=== PATIENT | male | born 1975 | race Caucasian/White ===

== ENCOUNTER 2018-12-31 12:10 | Inpatient (IN) | payer OTHER ==
[~2018-12-31] VITALS: Ht 195.6 cm; Wt 105.6 kg
[2018-12-31 12:43] LABS: BASOPHILS ABSOLUTE AUTO 0.01 K/mm3 (0.00-0.23); BASOPHILS PERCENT AUTO 0 % (0-2); EOSINOPHILS ABSOLUTE AUTO 0.01 K/mm3 (0.00-0.68); EOSINOPHILS PERCENT AUTO 0 % (0-6); IMMATURE GRAN ABSOLUTE AUTO 0.03 K/mm3 (0.00-0.10); IMMATURE GRAN PERCENT AUTO 0 % (0-1); LYMPHOCYTES ABSOLUTE AUTO 0.59 K/mm3 (0.84-5.20); LYMPHOCYTES PERCENT AUTO 8 % (21-46); MONOCYTES ABSOLUTE AUTO 0.39 K/mm3 (0.16-1.47); MONOCYTES PERCENT AUTO 6 % (4-13); Mean Corpuscular HGB 22.4 pg (26.0-34.0); Mean Corpuscular HGB Conc 27.7 g/dL (31.5-36.5); Mean Corpuscular Volume 81 fL (80-100); Mean Platelet Volume 9.8 fL (9.1-12.4); NEUTROPHILS ABSOLUTE AUTO 5.96 K/mm3 (1.96-9.15); NEUTROPHILS PERCENT AUTO 85 % (41-73); Platelet Count 216 K/mm3 (150-400); RDW Coefficient Variation 21.2 % (11.7-14.2); RDW Standard Deviation 61.8 fL (35.1-46.3); Red Blood Cell Count 1.83 M/mm3 (4.30-5.90); White Blood Cell Count 6.99 K/mm3 (4.00-11.30)
[2018-12-31 12:45] LABS: Hematocrit 14.8 % (37.0-53.0); Hemoglobin 4.1 g/dL (13.5-17.5)
[2018-12-31 13:03] LABS: Alanine Aminotransfer (ALT/SGP 34 U/L (12-78); Albumin, Blood 2.8 g/dL (3.4-5.0); Albumin/Globulin Ratio 0.8 (0.8-1.8); Alk Phos 145 U/L (50-136); Anion Gap 19 mmol/L (6-16); Aspartate Aminotrans (AST/SGOT 109 U/L (12-37); Bilirubin, Total 4.5 mg/dL (0.1-1.0); Blood Urea Nitrogen 16 mg/dL (8-24); Bun/Creatinine Ratio 18.1 (12.0-20.0); CO2, Blood 17 mmol/L (21-32); Calcium, Blood 7.8 mg/dL (8.5-10.1); Chloride, Blood 103 mmol/L (98-108); Creatinine, Blood 0.88 mg/dL (0.60-1.20); Globulin, Blood 3.7 g/dL (2.2-4.0); Glomerular Filtration Rate >60 (60-); Glucose, Blood 132 mg/dL (70-99); Potassium, Blood 3.9 mmol/L (3.5-5.5); Sodium, Blood 139 mmol/L (136-145); Total Protein, Blood 6.5 g/dL (6.4-8.2)
[2018-12-31 14:48] LABS: International Normalized Ratio 1.67; Prothrombin Time Results 16.9 Sec (9.7-11.5)
[2018-12-31 15:07] LABS: Acetaminophen, Random <2.0 ug/mL (10.0-30.0); Bilirubin, Direct 3.1 mg/dL (0.0-0.3)
[2018-12-31] MEDS ORDERED: Prilosec Otc20 MG PO (16:32)
[2018-12-31] MEDS ORDERED: ACET325 PO (17:39)
--- NOTE | 2018-12-31 18:43 | NUR ---
PT ARRIVED TO PCU 11 VIA GURNEY FROM ED. REPORT FROM ED NURSE. PT WAS PULLED TO BED HE IS VERY PAINFUL AND WEAK. A/OX3, PLEASANT AND COOPERATIVE WITH CARE, FOLLOWS COMMANDS WELL, STATES HE PASSED OUT SEVERAL TIMES ON THE WAY HERE AND ALMOST FELL OUT OF THE CAR AND BRUISED HIMSELF UP, LUNGS ARE CLEAR T/O, RESP EVEN AND UNLABORED, NO COUGH NOTED, HRR, TELE IN PLACE RUNNING SR P PER MONITOR, SEE STRIP, NO EDEMA NOTED, PPP+1, CAP REFILL <3SEC, VS STABLE, AFEBRILE, IV SITES ARE CLEAR AND PATENT, BTX4, ABD FLAT SOFT NONTENDER, VOIDS WITHOUT DIFF, SKIN HAS SOME BRUISINGS TO RIGHT ARM AND LOW BACK, HORTENCIA COMBS ORIENTED TO ROOM LAYOUT AND CALL SYSTEM, CALL LIGHT IN REACH.
[2018-12-31 22:51] LABS: Hematocrit 19.7 % (37.0-53.0)
--- NOTE | 2019-01-01 01:37 | NUR ---
ASSUMED CARE OF PATIENT AT [facility] 1900 FROM HORACIO Miller RN. PATIENT ALERT AND ORIENTED X4; WEAK AND PATIENT REPORTS PAIN IN LOWER BACK, RIGHT SIDE FROM FALL BEFORE ARRIVAL TO HOSPITAL. PATIENT REPORTS NUMBNESS AND TINGLING IN LEFT INDEX FINGER FROM PREVIUOS INJURY. PATIENT DENIES DIZZINES AND NAUSEA AT START OF SHIFT; REPORTED NAUSEA AND UPSET STOMACH AFTER MIDNIGHT; MEDICATED PER EMAR. NPO EXCEPT SOME ICE CHIPS. REPORTED THIRD UNIT OF BLOOD INFUSING DURING SHIFT CHANGE. NO S/S OF REACTION NOTED. VSS. PATIENT AMBUALTES TO BEDSIDE COMMODE WITH 1-2 ASSIST TO [facility]; ATTENDS IN PLACE FOR INCONTINENT SMEARS; STOOL BLACK AND TARRY. URINE IS DARK; HGB 6.0 45 MINUTES AFTER 3RD RBC INFUSIONS; CALLED DR. DE LEON; NO NEW ORDERS RECIEVED; NEXT H/H AT 0500. CIWA 4-9; LIBRUIM AND ATIVAN GIVEN PER ORDER; MODERATE TREMOR NOTED; HEADACHE AT START OF SHIFT. NSR ON TELE; OXYGEN SATURATION ABOVE 90% ON ROOM AIR; SCDS IN PLACE. OCTREOTIDE, PROTONIX AND NS W/ KCL INFUSING PER ORDER; 3X PIV. PATIENT CURRENTLY SLEEPING IN BED; CALL LIGHT IN REACH; BED IN LOWEST POSISTION; BED ALARM ON; WILL CONTINUE TO MONIOR AND ASSESS UNTIL END OF BED.
[2019-01-01 04:28] LABS: Mean Corpuscular HGB 25.2 pg (26.0-34.0); Mean Corpuscular HGB Conc 30.7 g/dL (31.5-36.5); Mean Corpuscular Volume 82 fL (80-100); Mean Platelet Volume 9.9 fL (9.1-12.4); Platelet Count 112 K/mm3 (150-400); RDW Standard Deviation 56.3 fL (35.1-46.3); Red Blood Cell Count 2.14 M/mm3 (4.30-5.90)
[2019-01-01 04:35] LABS: Hematocrit 17.6 % (37.0-53.0); Hemoglobin 5.4 g/dL (13.5-17.5)
[2019-01-01 04:44] LABS: Anion Gap 8 mmol/L (6-16); Blood Urea Nitrogen 17 mg/dL (8-24); Bun/Creatinine Ratio 17.3 (12.0-20.0); CO2, Blood 25 mmol/L (21-32); Calcium, Blood 6.9 mg/dL (8.5-10.1); Chloride, Blood 108 mmol/L (98-108); Creatinine, Blood 0.98 mg/dL (0.60-1.20); Glomerular Filtration Rate >60 (60-); Glucose, Blood 79 mg/dL (70-99); Potassium, Blood 3.7 mmol/L (3.5-5.5); Sodium, Blood 141 mmol/L (136-145)
--- NOTE | 2019-01-01 05:09 | NUR ---
CALLED DR. CONNORS TO REPORT HEMOGLOBIN OF 5.4 AND HEMATOCRIT OF 17.6; ORDERS RECIEVED FOR ONE UNIT RBC.
--- NOTE | 2019-01-01 06:32 | NUR ---
THIS RN STAYED IN THE ROOM FIRST FIFTEEN MINUTES OF RBC INFUSION; NO S/S OF ADVERSE REACTION NOTED; VSS. WILL CONTINUE TO MONITOR AND ASSESS UNTIL END OF SHIFT.
--- NOTE | 2019-01-01 07:32 | NUR ---
pt laying in bed awake a/ox3, pleasant and cooperative with care, follows commands well, states pain anderson he is sore from his fall yesterday, didn't get much sleep last night, lungs are clear t/o, resp even and unlabored, no cough noted, hrr, tele in place running sr per monitor, see strip, no edema noted, ppp+2, cap refill <3sec, vs stable, afebrile, iv sites are clear and patent, infusing at this time, btx4, abd flat soft nontender, voids without diff, was reported urine looked like coke, skin has scattered bruisings, maew, anyi, call light in reach.
--- NOTE | 2019-01-01 09:30 | NUR ---
TRANSFERRED FROM PCU 11 TO ICU 9, VIA BED. PATIENT MOANING BUT ORIENTED AND COOPERATIVE. C/O PAIN TO LOWER BACK AND SIDE AREA. LUNGS CLEAR; BIOX. STABLE ON ROOM AIR. PATIENT WITH 3 IV SITES; INFUSING WITH: NS + 20MEQ KCL AT 75ML/HR; OCTREOTIDE AT 25ML/HR; PROTONIX AT 10ML/HR AND RBC (UNIT # 4) INFUSING AT 125ML/HR. TO RECEIVE 2 MORE UNITS RBC'S AND 2UNITS FFP'S. DAYS SURGERY ARRIVING RN CONNECTING PATIENT TO MONITOR AND WEIGHING HIM ON ICU BED. DR. VÁSQUEZ, TO ARRIVE SHORTLY, AND DO EGD AND ASSESS FOR BLEEDING VARICIES, ETC; PATIENT WITH PREVIUS HX. OF GI BLEED/VARICES/ETOH ABUSE, ETC. NO FAMILY OR FRIENDS PRESENT AT THIS TIME; LEONOR' RETURNED TO [place], WHERE THEY RESIDE, AFTER PATIENT TAKEN TO ER AND NOT DISCHARGED TO HOME. SEE H/P FOR DETAILS. VOIDED 550ML OF SEAN URINE.
--- NOTE | 2019-01-01 09:37 | NUR ---
Dr. Castro was in to see pt, he changed him to icu status, pt was informed, report given to Erin CERVANTES, took all his belongings with him, he held his phone and wallet. moved to icu bed 9.
--- NOTE | 2019-01-01 09:39 | NUR ---
01/01/19 0939 Marisela Kelley History, Chart, Medications and Allergies reviewed before start of procedure. 3-LEAD EKG REVIEWED WITH PHYSICIAN PRIOR TO START OF PROCEDURE. MONITOR INTACT WITH CONTINUOUS PULSE OXIMETRY AND INTERMITTENT BP. O2 VIA N/C INTACT THROUGHOUT SEDATION/PROCEDURE. PATIENT DETERMINED TO BE ASA APPROPRIATE FOR PROPOFOL SEDATION PRIOR TO START OF PROCEDURE BY DR. CHA. ANESTHESIA REVIEW BY DR. HAYWARD, OK TO PROCEDE WITH NURSE SEDATION IF ALL MEMBERS AGREE. THIS RN REVIEWED CHART AND INTERVIEW WITH PT, AGREED SAFE TO PROCEDE WITH PROPOFOL BY RN
--- NOTE | 2019-01-01 09:50 | NUR ---
DR. VÁSQUEZ HERE; WENT OVER PROCEDURE WITH PATIENT; CONSENT FORM SIGNED.
--- NOTE | 2019-01-01 10:25 | NUR ---
EGD COMPLETED; SEE DAY SURG. NOTES FOR DETAILS OF PROCEDURE. 5 BANDS PLACED TO VARICES; REQUIRED 200+MCG/KG/MIN OF PROPOFOL FOR SEDATION. AIRWAY REMAINS IN PLACE AND PATIENT STARTING TO ROUSE.
--- NOTE | 2019-01-01 10:50 | NUR ---
AWAKE; ON ROOM AIR AND BIOX. VARIES FROM 94-100% ON ROOM AIR. CONTINUES WITH BLOOD PRODUCTS; A TOTAL OF 6 UNITS OF RBC'S WILL BE GIVEN SINCE ADMIT AND IN MIDDLE OF 2 UNITS FFP'S. OCTREOTIDE AND PROTONIX DRIPS CONTINUE. NS WITH 20MEQ KCL AT 75/HR; NEW LITER NOT HUNG AT THIS TIME D/T BANANA BAG WILL BE HUNG AROUND NOON.
--- NOTE | 2019-01-01 14:01 | NUR ---
FENTANYL 25MCG/MIN GIVEN IVT X 1 FOR BACK/SIDE PAIN; BP HAS COME DOWN A SMALL AMOUNT AFTER RECEIVING 20MG APRESOLINE IVT (PRN Q 4 HOURS FOR SBP>150). RN INFORMED DR. ODEN RE: SBP IN 190'S AND V/O GIVEN FOR APRESOLINE. CLEAR LIQUIDS CAN BE INITIATED AROUND 1430; RN GAVE TAGAMET ALREADY AND SOME ICE CHIPS. FINAL UNIT RBC INFUSING; WILL CHECK H&H 1/2 HOUR AFTER TRANSFUSION COMPLETED.
[2019-01-01 16:29] LABS: Hematocrit 28.5 % (37.0-53.0); Hemoglobin 9.1 g/dL (13.5-17.5)
--- NOTE | 2019-01-01 18:53 | NUR ---
SUMMARY: ATIVAN 2MG IV AROUND 1800 FOR SOME ANXIETY AND DISCOMFORT. SBP IMPROVED AND NO FURTHER N/V; GIVEN ZOFRAN EARLIER; HAD ABOUT 75ML OF EMESIS DIRECTLY AFTER DRINKING CLEAR LIQUIDS AND EATING JELLO; STATES HE GULPED TOO FAST. NO FURTHER ISSUES. LABS DRAWN AROUND 1545; HGB 9+ AND HCT 28+. HAD SEVERAL SMALL/JELLY TO LIQUID SMEAR/SMALL STOOLS (OLD BLOOD). APRESOLINE 20MG IV FOR HTN EARLIER. NO FURTHER ISSUES WITH N/V. RESTING AT THIS TIME.
--- NOTE | 2019-01-01 19:00 | NUR ---
[place] of Care: Patient alert and oriented x4, sitting upright in bed watching tv. VSS, denies dyspnea or SOB, O2- 98% on RA. C/o pain r/t to fall before admission, located to back, rt ribs, rt knee, plan to given prn fentanyl. C/o mild nausea, pt states prn zofran given on day shift is effective and he is tolerating PO fluids and jell-o without difficulty. No s/s of active bleeding at this time. Peripheral IV's x3 patent and intact, infusing protonix gtt, sandostatin gtt, and NS with 20meq KCL without difficulty. Using urinal to void without difficulty. Call light in reach, makes needs known. Will continue to monitor for pain, comfort, safety.
[2019-01-02 04:01] LABS: BASOPHILS ABSOLUTE AUTO 0.02 K/mm3 (0.00-0.23); BASOPHILS PERCENT AUTO 1 % (0-2); EOSINOPHILS ABSOLUTE AUTO 0.08 K/mm3 (0.00-0.68); EOSINOPHILS PERCENT AUTO 2 % (0-6); Hematocrit 25.3 % (37.0-53.0); IMMATURE GRAN ABSOLUTE AUTO 0.03 K/mm3 (0.00-0.10); IMMATURE GRAN PERCENT AUTO 1 % (0-1); LYMPHOCYTES ABSOLUTE AUTO 0.65 K/mm3 (0.84-5.20); LYMPHOCYTES PERCENT AUTO 18 % (21-46); MONOCYTES ABSOLUTE AUTO 0.18 K/mm3 (0.16-1.47); MONOCYTES PERCENT AUTO 5 % (4-13); Mean Corpuscular HGB 26.8 pg (26.0-34.0); Mean Corpuscular HGB Conc 31.6 g/dL (31.5-36.5); Mean Platelet Volume 9.6 fL (9.1-12.4); NEUTROPHILS ABSOLUTE AUTO 2.73 K/mm3 (1.96-9.15); NEUTROPHILS PERCENT AUTO 74 % (41-73); Platelet Count 124 K/mm3 (150-400); RDW Coefficient Variation 17.7 % (11.7-14.2); RDW Standard Deviation 53.3 fL (35.1-46.3); Red Blood Cell Count 2.99 M/mm3 (4.30-5.90); White Blood Cell Count 3.69 K/mm3 (4.00-11.30)
[2019-01-02 04:11] LABS: Mean Corpuscular Volume 85 fL (80-100)
[2019-01-02 04:22] LABS: Alanine Aminotransfer (ALT/SGP 29 U/L (12-78); Albumin, Blood 2.6 g/dL (3.4-5.0); Albumin/Globulin Ratio 0.8 (0.8-1.8); Alk Phos 104 U/L (50-136); Anion Gap 9 mmol/L (6-16); Aspartate Aminotrans (AST/SGOT 91 U/L (12-37); Bilirubin, Total 5.8 mg/dL (0.1-1.0); Blood Urea Nitrogen 11 mg/dL (8-24); Bun/Creatinine Ratio 12.5 (12.0-20.0); CO2, Blood 23 mmol/L (21-32); Calcium, Blood 6.8 mg/dL (8.5-10.1); Chloride, Blood 108 mmol/L (98-108); Creatinine, Blood 0.88 mg/dL (0.60-1.20); Globulin, Blood 3.1 g/dL (2.2-4.0); Glomerular Filtration Rate >60 (60-); Glucose, Blood 126 mg/dL (70-99); Potassium, Blood 3.9 mmol/L (3.5-5.5); Sodium, Blood 140 mmol/L (136-145); Total Protein, Blood 5.7 g/dL (6.4-8.2)
--- NOTE | 2019-01-02 05:58 | NUR ---
Shift Summary: Patient slept on/off throughout shift. C/o pain r/t fall before admission, effectively managed with x2 doses of prn fentanyl 25mcg. Denies dyspnea/SOB, O298% on RA, VSS. No s/s of active GI bleed throughout shift, no BM, no emesis. Protonix, Sandostatin, and NS with 20meq of KCl infusing through x3 peripheral IV's without difficulty. Using urinal in bed to void without difficulty. X1 transfer to bedside commode early in shift, patient very weak, shaky, and unsteady on feet. CIWA 5-10, x1 prn Ativan, and x1 prn Librium given with good effect, remains calm and cooperative with staff. Temp max of 100.4 late this shift, received order per Dr. Maldonado for Tylenol 650mg q6prn fever. X1 dose given approx 0545hr, will monitor for effect. Will continue to monitor until report to day shift RN.
--- NOTE | 2019-01-02 07:15 | NUR ---
ASSUMED CARE OF PATIENT; SEE ASSESSMENT CHARTING FOR DETAILS. LUNGS CLEAR; NO ACUTE RESP. DISTRESS. H&H STABLE; NO ACUTE SIGNS OR SYMPTOMS OF BLEEDING. PATIENT A/O AND OVERALL COOPERATIVE. CAN BE DEFENSIVE AT TIMES; IE- UPSET THAT STAFF ARE CONCERNED ABOUT WITHDRAWALS AND REFER TO HIS SHAKINESS SIGN OF WITHDRAWALS; PATIENT STATES HE IS SHAKY D/T PAIN FROM FALLING. RN WILL MEDICATE WITH FENTANYL 25MCG IV FOR PAIN; PER PATIENTS' REQUEST. LOWGRADE FEVER (99.6) THIS AM. C/O BEING CHILLED AND STATES STAFF KEEPING ROOM COLD. PATIENT COVERED PER USUAL AND ROOM COMFORTABLE TO RN.. VOIDS SMALL TO MOD. AMOUNTS OF DK. SEAN URINE.
--- NOTE | 2019-01-02 09:15 | NUR ---
DR. ALEIDA Yanes HERE (HOSPITALIST); SEE NEW ORDERS.
[2019-01-02 11:06] LABS: HBSAG SCREEN Negative (Negative); HEP A AB, IGM Negative (Negative); HEP B CORE AB, IGM Negative (Negative); HEP C VIRUS AB <0.1 (0.0-0.9)
--- NOTE | 2019-01-02 11:50 | NUR ---
DR. VÁSQUEZ (GI) HERE; RN TO ADVANCE PATIENT TO SOFT DIET AND CAN BE CHANGED TO PCU STATUS.
[2019-01-02 12:34] LABS: Hematocrit 27.7 % (37.0-53.0); Hemoglobin 8.4 g/dL (13.5-17.5)
--- NOTE | 2019-01-02 16:00 | NUR ---
H&H DRAWN WITHOUT INCIDENT. READINGS STABLE (8.4 AND 27+).
--- NOTE | 2019-01-02 17:15 | NUR ---
SUMMARY: MEDICATED WITH 25MCG/IV FENTANYL ABOUT EVERY 3-4 HOURS; C/O BACK AND RIB PAIN FROM HIS FALL ON WAY TO HOSPITAL. SOME BRUISING ON R SIDE BUT NO OTHER OBVIOUS INJURY NOTED; DR. SHIN EVALUATED PAIN/BACK ETC., THIS AM, AND DOES NOT FEEL THERE IS A FRACTURE. ULTRAM ORDERED (PO) Q 6 HOURS PRN; RN GAVE DOSE AT THIS TIME TO SEE IF IT REDUCES PAIN AND ALLOWS INCREASED MOBILITY. UP TO BSC SEVERAL TIMES WITH ASSIST.; VERY SHAKY WHEN GETTING IN/OUT OF BED. DENIES C/O H.A., GI UPSET, ETC. COOPERATIVE AND NO SIGNS OF ANXIETY OR AGITATION; CIWA <8 THIS PM. CHANGED TO PCU STATUS AROUND NOON; NO ROOMS AVAILABLE AT THIS TIME. WILL REPORT TO ONCOMING RN.
--- NOTE | 2019-01-02 20:09 | NUR ---
CARE ASSUMED REPORT RECEIVED, CARE ASSUMED FROM BILLY SALAZAR. PT AWAKE WATCHING TELEVISION IN BED. COMPLAINTS OF PAIN RELATED TO PREVIOUS FALL, MEDICATED WITH FENTANYL PER PATIENT REQUEST. PT DECLINES TYLENOL. PT EDUCATED, MINIMALLY INTERESTED. REPORTS HE IS PLANNING TO STOP DRINKING ETOH ONCE DISCHARGED. DECLINES CIWA SYPTOMS, TREMORS PRESENT. VITALS STABLE. SEE ASSESSMENT.
[2019-01-03 03:54] LABS: BASOPHILS ABSOLUTE AUTO 0.02 K/mm3 (0.00-0.23); BASOPHILS PERCENT AUTO 1 % (0-2); EOSINOPHILS ABSOLUTE AUTO 0.12 K/mm3 (0.00-0.68); EOSINOPHILS PERCENT AUTO 3 % (0-6); Hemoglobin 8.4 g/dL (13.5-17.5); IMMATURE GRAN ABSOLUTE AUTO 0.01 K/mm3 (0.00-0.10); IMMATURE GRAN PERCENT AUTO 0 % (0-1); LYMPHOCYTES ABSOLUTE AUTO 0.65 K/mm3 (0.84-5.20); LYMPHOCYTES PERCENT AUTO 18 % (21-46); MONOCYTES ABSOLUTE AUTO 0.25 K/mm3 (0.16-1.47); MONOCYTES PERCENT AUTO 7 % (4-13); Mean Corpuscular HGB 26.8 pg (26.0-34.0); Mean Corpuscular HGB Conc 31.1 g/dL (31.5-36.5); Mean Corpuscular Volume 86 fL (80-100); Mean Platelet Volume 9.3 fL (9.1-12.4); NEUTROPHILS ABSOLUTE AUTO 2.62 K/mm3 (1.96-9.15); NEUTROPHILS PERCENT AUTO 71 % (41-73); Platelet Count 117 K/mm3 (150-400); RDW Coefficient Variation 18.7 % (11.7-14.2); RDW Standard Deviation 56.9 fL (35.1-46.3); Red Blood Cell Count 3.14 M/mm3 (4.30-5.90); White Blood Cell Count 3.67 K/mm3 (4.00-11.30)
[2019-01-03 04:17] LABS: Albumin, Blood 2.5 g/dL (3.4-5.0); Anion Gap 9 mmol/L (6-16); Blood Urea Nitrogen 8 mg/dL (8-24); Bun/Creatinine Ratio 9.1 (12.0-20.0); CO2, Blood 23 mmol/L (21-32); Calcium, Blood 7.1 mg/dL (8.5-10.1); Chloride, Blood 106 mmol/L (98-108); Creatinine, Blood 0.88 mg/dL (0.60-1.20); Glomerular Filtration Rate >60 (60-); Glucose, Blood 94 mg/dL (70-99); Potassium, Blood 3.7 mmol/L (3.5-5.5); Sodium, Blood 138 mmol/L (136-145)
[2019-01-03 04:19] LABS: Phosphorus, Blood 0.9 mg/dL (2.5-4.9)
--- NOTE | 2019-01-03 07:19 | NUR ---
SUMMARY PT HAS SLEPT MAJORITY OF NIGHT. VITALS STABLE. ASSESSMENTS UNCHANGED. PROTONIX GTT AND OCTREOTIDE CONTINUOUSLY INFUSING. PT HAS NOT REQUESTED MEDICATION FOR PAIN SINCE INITIAL ASSESSMENT. REPORT TO ANDREINA DAY SHIFT RN.
--- NOTE | 2019-01-03 11:07 | NUR ---
The pt has been OOB to the toilet twice today, passing lots of gas and normal looking soft formed brown stool. Denies nausea/vomiting; ate his breakfast without incident while sitting up in the chair this morning. His main complaint has been musculoskleletal pain which he states has been from a fall sustained just before admission, in his back and his right shoulder. Relief somewhat with ultram this morning. Tremors noted and anxiety this morning, also relieved with oral medication, Librium. He also complained of being very tired from frequent interruptions and awakening during the night. He hopes to be discharged home today.
--- NOTE | 2019-01-03 12:34 | NUR ---
Dr. Schaffer called after Dr. Stoll was here; Per GI, the pt can be discharged today.
[2019-01-03] MEDS ORDERED: Carafate1 GM/10 ML PO (13:35)
[2019-01-03] MEDS ORDERED: CIPR500 PO (13:36)
[2019-01-03] MEDS ORDERED: NADO20 PO (13:37)
== END 2019-01-03 14:00 | disposition home or self-care (01) | DRG 369 ==
LOC: ER 12:10 → ICUW 17:15 → PCU 17:15 → ICUW 17:32
PROVIDERS: Emergency Medicine; Family Medicine; Internal Medicine; Student in an Organized Health Care Education/Training Program; ADMIT Hospitalist
PROC: 30233N1 Transfusion of Nonautologous Red Blood Cells into Peripheral Vein, Percutaneous Approach (ICD-10-PCS; principal; 2018-12-31)
PROC: 0W3P8ZZ Control Bleeding in Gastrointestinal Tract, Via Natural or Artificial Opening Endoscopic (ICD-10-PCS; 2019-01-01)
DX: I85.01 Esophageal varices with bleeding (principal); F10.239 Alcohol dependence with withdrawal, unspecified; D62 Acute posthemorrhagic anemia; K76.6 Portal hypertension; D61.818 Other pancytopenia; Z87.891 Personal history of nicotine dependence; K70.30 Alcoholic cirrhosis of liver without ascites; D86.9 Sarcoidosis, unspecified; K70.10 Alcoholic hepatitis without ascites; E83.39 Other disorders of phosphorus metabolism; M54.9 Dorsalgia, unspecified
CPT/HCPCS: 36415; 36430; 80048; 80053; 80069; 80074; 82248; 82272; 83690; 83735; 85014; 85018; 85025; 85027; 85610; 86850; 86900; 86901; 86923; 93005; 93010; 93975; 96365; 96366; 96368; 96375; 99285-25; C9113; G0480; J0360; J0696; J1430; J2060; J2250; J2405; J3010; J3411; J3430; J3475; J3480; J7030; J7042; J7050; J7060; J7120; P9016; P9059